=== PATIENT | female | born 1945 | race Caucasian/White ===

== ENCOUNTER 2021-01-31 09:53 | Inpatient (IN) | payer OTHER ==
[~2021-01-31] VITALS: Ht 160 cm; Wt 61.8 kg
--- NOTE | ~2021-01-31 | P ---
[facility] [place] [address] PROCEDURE REPORT Name: BLANE HANNAH Room #: 217-P ADM IN M.R.#: [id number] Admission: 01/31/21 Attend Phys: Kartik Parks MD Discharge: Date of : 45 Report #: [id number] THIS REPORT FOR: cc: FAM - Family physician unknown FAM - Family physician unknown Andrew Aguiar MD ~ cc: René Seymour MD DATE OF SERVICE: 02/02/2021 PROCEDURE PERFORMED: Upper endoscopy with bleeding control. HISTORY OF PRESENT ILLNESS: The patient is a 75-year-old female who was admitted for chest pain. She was noted to have a mildly elevated troponin. She has a previous history of coronary artery disease with stent placement. Plan is for cardiac catheterization likely on Friday. She has an iron deficiency anemia. Admit hemoglobin was 7.1, dropped to 6.5 yesterday, was transfused 1 unit of packed cells and hemoglobin today is 8.0. Stool was Hemoccult positive x 1 yesterday. The patient denies any obvious bright red blood per rectum or melena, reportedly had a colonoscopy in the last 1-2 years that was negative. She denies any dysphagia. She is on aspirin at home as well as PPI therapy. DESCRIPTION OF PROCEDURE: The risks and benefits of the procedure were explained to the patient, those risks including but not limited to bleeding, perforation and the risk of sedation. She understood these risks and gave informed consent. Sedation was given using propofol per Anesthesia. Next, using a standard Olympus upper endoscope, the scope was placed in the patient's mouth and advanced under direct vision through the esophagus, stomach and into the second portion of the duodenum. The larynx was normal in appearance. The esophagus was normal throughout. The GE junction was normal. In the gastric body, a single nonbleeding AVM was noted, 3 mm in size. Because of her history of anemia, this was cauterized with a 7-English bipolar cautery. No evidence of bleeding after cauterization. Otherwise, normal gastric mucosa. The pylorus was normal and patent. The duodenal bulb and first portion were normal. In the second portion, 2 small nonbleeding AVMs also noted. Both of these were also cauterized. No other abnormalities noted. The scope was then withdrawn and the procedure terminated. The patient tolerated the procedure well. IMPRESSION: 1. Small gastric and duodenal arteriovenous malformations, nonbleeding, status post cauterization today, could be etiology of the patient's anemia, heme-positive stool. 2. Otherwise, normal upper endoscopy. RECOMMENDATIONS: 1. Observe the patient post-procedure. [address] [address] PROCEDURE REPORT Name: BLANE HANNAH Room #: 217-P [facility] IN M.R.#: [id number] Admission: 01/31/21 Attend Phys: Kartik Parks MD Discharge: Date of : 45 Report #: [id number] 2. Continue daily PPI therapy. 3. Okay to proceed with cardiac catheterization as long as hemoglobin remains stable. Thank you for allowing me to participate in her care. By: 1352 3536 Andrew Aguiar MD /nt
[2021-01-31 09:57] VITALS: BP 151/58
[2021-01-31] MEDS ORDERED: COZAAR 25 MG TA25 M1 PO (10:11)
[2021-01-31] MEDS ORDERED: NAMENDA 5 MG TAB5 M1 PO (10:12)
[2021-01-31] MEDS ORDERED: DICLOFENAC SOD100 G1 PO (10:12)
[2021-01-31] MEDS ORDERED: PROTONIX40 M4 PO (10:15)
[2021-01-31] MEDS ORDERED: ASA81BEC PO (10:15)
[2021-01-31] MEDS ORDERED: DESYREL150 MG PO (10:15)
[2021-01-31] MEDS ORDERED: STOOL SOFTENER100 MG PO (10:16)
[2021-01-31] MEDS ORDERED: NEURONTIN100 MG PO (10:16)
[2021-01-31] MEDS ORDERED: BACLOFEN 10MG T10 MG PO (10:17)
[2021-01-31] MEDS ORDERED: APAP W/CODEINE1 TA2 PO (10:18)
[2021-01-31 10:22] LABS: ABSOLUTE NEUTROPHILS 6.3 thou/uL (1.4-8.2); BASOPHILS 0.5 % (0.0-2.0); EOSINOPHILS 0.6 % (0.0-3.0); HEMATOCRIT 22.7 % (37.0-47.0); HEMOGLOBIN 7.1 gm/dL (12.0-15.0); LYMPHOCYTES 8.1 % (24.0-44.0); MCH 24.5 pg (26.0-34.0); MCHC 31.1 g/dL (28.0-37.0); MCV 78.9 fL (80.0-100.0); MONOCYTES 6.3 % (1.0-8.0); PLATELET COUNT 304 thou/uL (150-400); POLYS 84.5 % (36.0-66.0); RBC 2.88 mil/uL (4.20-5.00); RDW 17.8 % (10.5-14.5); WBC 7.5 thou/uL (4.0-11.0)
[2021-01-31 10:32] LABS: CALCIUM 8.3 mg/dL (8.5-10.1); CREATININE 0.8 mg/dL (0.6-1.0)
[2021-01-31 10:42] LABS: ALBUMIN 3.1 g/dL (3.4-5.0); TOTAL BILIRUBIN 0.2 mg/dL (0.2-1.0); TOTAL PROTEIN 6.6 g/dL (6.4-8.2); TROPONIN-I 0.34 ng/mL (<0.06)
--- NOTE | 2021-01-31 12:23 | EKG ---
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 : 1945 Requested By: Emmett Rivera Order Number: [id number] MD: Darius Tse Measurements Intervals Kinney Rate: 64 P: 54 NM: 233 QRS: -21 QRSD: 102 T: 24 QT: 515 QTc: 532 Interpretive Statements Sinus rhythm Prolonged NM interval Borderline left axis deviation Abnormal R-wave progression, early transition Nonspecific T abnrm, anterolateral leads Prolonged QT interval No previous ECG available for comparison Electronically Signed On 01-31-2021 12:23:13 CDT by Darius Tse [email or web address] <ELECTRONICALLY SIGNED> By: Darius Tse MD, [facility] 01/31/21 [phone] [id number] Darius Tse MD, [facility] /EPI
[2021-01-31 12:31] LABS: % SATURATION 3 % (20-39); IRON 11 ug/dL (50-170); TIBC 315 ug/dL (250-450)
[2021-01-31 12:50] VITALS: BP 139/64
[2021-01-31 12:58] LABS: FOLIC ACID 12.5 ng/mL (8.6-58.9)
--- NOTE | 2021-01-31 13:08 | NUR ---
DR ORTEGA AT BEDSIDE.
[2021-01-31] MEDS ORDERED: HYDROCODON-ACE1 EAC7 PO (15:33)
[2021-01-31] MEDS ORDERED: MELOXICAM7.5 MG PO (15:33)
[2021-01-31] MEDS ORDERED: KLOR-CON 1010 MEQ PO (15:34)
[2021-01-31 16:46] VITALS: BP 164/68
[2021-01-31 17:15] VITALS: BP 134/44
--- NOTE | 2021-01-31 17:45 | NUR ---
75 year old female presenting to the ED with her family with the complaint of CP. Pt states the CP suddenly onset at 0730 the AM of 01-31-21. Note Trop of 0.34. Possible cardiac cath and trend troponins. Spouse Leo listed as next of Kin at [phone] and daughter Leigh Ann Hansen at [phone]. Called Leo's number and daughter Leigh Ann answered as her father (the patients spouse) was driving. Explained role of CM and Leigh Ann stated that her Father Leo would be the one coming in and main contact. For now CM will await plans for discharge per MD and workup.
[2021-01-31 20:15] VITALS: BP 149/71
[2021-02-01 03:22] LABS: MONOCYTES 11.2 % (1.0-8.0); PLATELET COUNT 274 thou/uL (150-400)
[2021-02-01 03:24] LABS: ABSOLUTE NEUTROPHILS 2.5 thou/uL (1.4-8.2); BASOPHILS 1.2 % (0.0-2.0); EOSINOPHILS 3.9 % (0.0-3.0); HEMATOCRIT 20.1 % (37.0-47.0); HEMOGLOBIN 6.5 gm/dL (12.0-15.0); MCH 25.2 pg (26.0-34.0); MCHC 32.6 g/dL (28.0-37.0); MCV 77.2 fL (80.0-100.0); POLYS 53.7 % (36.0-66.0); RDW 17.7 % (10.5-14.5); WBC 4.6 thou/uL (4.0-11.0)
[2021-02-01 04:00] LABS: ANION GAP 11 mmol/L (7-16); BUN 15 mg/dL (7-18); CALCIUM 7.9 mg/dL (8.5-10.1); CHLORIDE 110 mmol/L (98-107); CHOLESTEROL 190 mg/dL (<200); CO2 24 mmol/L (21-32); CREATININE 0.7 mg/dL (0.6-1.0); GLUCOSE 87 mg/dL (74-106); HDL CHOLESTEROL 37 mg/dL (>40); LDL CHOLESTEROL 123 mg/dL (<100); MAGNESIUM 2.1 mg/dL (1.8-2.4); SODIUM 145 mmol/L (136-145); TC:HDL 5.1 Ratio (Not establshd); TRIGLYCERIDE 152 mg/dL (<150); VLDL 30 mg/dL (<40)
--- NOTE | 2021-02-01 04:29 | NUR ---
NPO SINCE MIDNIGHT FOR A POSSIBLE PROCEDURE TODAY.DENIES ANY PAIN.MONITOR SHOWS SA.POC CONTINUED.
[2021-02-01 04:45] VITALS: BP 167/76
[2021-02-01 05:02] LABS: SERUM ASSESSMENT Clear
--- NOTE | 2021-02-01 07:01 | NUR ---
LOW HEMOGLOBIN AND HEMATOCRIT THIS MORNING.LAB SAYS THEY WILL ONLY CALL FOR RESULT OF HGB 6.4 AND BELOW.JOSE PUBLISHING SPECIALIST WAS CALLED IMMEDIATELY AND SHE ORDERED 1 UNIT PRBC.CONSENT SIGNED.REPORT GIVEN TO DAY SHIFT RN.POC CONTINUED.
--- NOTE | 2021-02-01 09:12 | 2DMMODE ---
[facility] [place] [address] 2 D/M-MODE ECHOCARDIOGRAM Name: BLANE HANNAH Room #: 217-P ADM IN M.R.#: [id number] Admission: 01/31/21 Attend Phys: Kartik Parks MD Discharge: Date of : 45 Report #: [id number] THIS REPORT FOR: cc: FAM - Family physician unknown FAM - Family physician unknown Clifford Phillips MD ~ APPROVED REPORT Study performed: 02/01/2021 08:03:32 EXAM: Comprehensive 2D, Doppler, and color-flow Echocardiogram Patient Location: In-Patient Room #: 217 BSA: 1.64 HR: 65 bpm BP: 167/76 mmHg Rhythm: NSR Other Information Study Quality: Adequate Risk Factors: Cardiac Risk Factors: HTN, SOB, DM Indications Diabetes Dyspnea Chest Pain 2D Dimensions RVDd: 29.07 mm IVSd: 12.58 (7-11mm) LVOT Diam: 20.14 (18-24mm) LVDd: 49.11 mm PWd: 14.49 (7-11mm) Ascending Ao: 35.00 (22-36mm) LVDs: 35.72 (25-40mm) Left Atrium: 37.10 (27-40mm) Aortic Root: 32.94 mm Volumes Left Atrial Volume (Systole) Single Plane 4CH: 57.65 mL Single Plane 2CH: 49.25 mL Biplane LA Volume: 58.00 mL LA ESV Index: 35.00 mL/m2 [facility] [address] [place] [address] 2 D/M-MODE ECHOCARDIOGRAM Name: BLANE HANNAH Room #: 217-[facility] IN M.R.#: [id number] Admission: 01/31/21 Attend Phys: Kartik Parks MD Discharge: Date of : 45 Report #: [id number] Aortic Valve AoV Peak Elieser.: 2.62 m/s AO Peak Gr.: 27.51 mmHg LVOT Max P.28 mmHg AO Mean Gr.: 16.09 mmHg LVOT Mean P.25 mmHg AO V2 Mean: 1.92 m/s LVOT Max V: 1.03 m/s AO V2 VTI: 69.02 cm LVOT Mean V: 0.70 m/s MALGORZATA (VTI): 1.28 cm2 LVOT V1 VTI: 27.86 cm MALGORZATA Vmax: 1.26 cm2 AI Vmax: 4.54 m/s SV (LVOT): 88.67 mL AI [place]: 2.61 m/s2 AI PHT: 512.45 ms Mitral Valve E/A Ratio: 1.5 MV Decel. Time: 198.53 ms MV E Max Elieser.: 1.00 m/s MV A Elieser.: 0.67 m/s MV PHT: 57.57 ms MVA (PHT): 2.19 cm2 IVRT: 87.66 ms Pulmonary Valve PV Peak Elieser.: 1.46 m/s PV Peak Gr.: 8.49 mmHg Pulmonary Vein P Vein S: 0.68 m/s P Vein A: 0.19 m/s P Vein D: 0.45 m/s P Vein A Dur.: 124.6 msec P Vein S/D Ratio: 1.51 Tricuspid Valve TR Peak Elieser.: 2.67 m/s RAP Estimate: 7.00 mmHg TR Peak Gr.: 28.51 mmHg RVSP: 36.00 mmHg Left Ventricle The left ventricle is normal size. There is normal LV segmental wall motion. There is normal left ventricular wall thickness. Left ventricular systolic function is normal. The left ventricular ejection fraction is within the normal range. LVEF is 50-55%. Transmitral Doppler flow pattern suggests impaired LV relaxation. Right Ventricle The right ventricle is normal size. The right ventricular systolic function is normal. [facility] [address] [place] [address] 2 D/M-MODE ECHOCARDIOGRAM Name: BLANE HANNAH Room #: [address] [place] [address] IN M.R.#: [id number] Admission: 01/31/21 Attend Phys: Kartik Parks MD Discharge: Date of : 45 Report #: [id number] Left atrium is mildly dilated. The right atrium size is normal. Aortic Valve The aortic valve is normal in structure. Mild to moderate aortic regurgitation. Mild aortic stenosis. Highest mean aortic valve gradient is _16___mmHg. Peak aortic valve gradient is _27___mmHg. Calculated MALGORZATA by the continuity equation is 1.3_cm2. Mitral Valve The mitral valve is normal in structure. Moderate mitral regurgitation. No evidence of mitral valve stenosis. Tricuspid Valve The tricuspid valve is normal in structure. Mild tricuspid regurgitation. PAP 35 mmHg Pulmonic Valve The pulmonary valve is normal in structure. Trace pulmonic regurgitation. Great Vessels The aortic root is normal in size. IVC is normal in size and collapses >50% with inspiration. Pericardium There is no pericardial effusion. There is no pleural effusion. <Conclusion> The left ventricle is normal size. There is normal left ventricular wall thickness. LVEF is 50-55%. The right ventricle is normal size. Left atrium is mildly dilated. The aortic valve is normal in structure. Mild to moderate aortic regurgitation. Mild aortic stenosis. Highest mean aortic valve gradient is _16___mmHg. Peak aortic valve gradient is _27___mmHg. Calculated MALGORZATA by the continuity equation is 1.3_cm2. The mitral valve is normal in structure. Moderate mitral regurgitation. The tricuspid valve is normal in structure. Mild tricuspid regurgitation. PAP [address] [facility] [address] [place] [address] 2 D/M-MODE ECHOCARDIOGRAM Name: BLANE HANNAH Room #: 217-P ADM IN M.R.#: [id number] Admission: 01/31/21 Attend Phys: Kartik Parks MD Discharge: Date of : 45 Report #: [id number] The pulmonary valve is normal in structure. Trace pulmonic regurgitation. The aortic root is normal in size. There is no pericardial effusion. <ELECTRONICALLY SIGNED> By: Clifford Phillips MD 02/01/21911 1 1 Clifford Phillips MD /INF
[2021-02-01 16:00] VITALS: BP 169/67
[2021-02-01 19:39] VITALS: BP 180/67
[2021-02-02 03:35] LABS: HEMATOCRIT 24.6 % (37.0-47.0); MCH 25.6 pg (26.0-34.0); MCHC 32.5 g/dL (28.0-37.0); MCV 78.8 fL (80.0-100.0); RBC 3.12 mil/uL (4.20-5.00); RDW 17.7 % (10.5-14.5); WBC 4.5 thou/uL (4.0-11.0)
[2021-02-02 04:07] VITALS: BP 180/93
[2021-02-02 04:18] LABS: ALBUMIN 3.1 g/dL (3.4-5.0); CALCIUM 8.3 mg/dL (8.5-10.1); CREATININE 0.7 mg/dL (0.6-1.0); POTASSIUM 3.8 mmol/L (3.5-5.1); TOTAL BILIRUBIN 0.3 mg/dL (0.2-1.0); TOTAL PROTEIN 6.5 g/dL (6.4-8.2)
[2021-02-02 08:00] VITALS: BP 126/76
[2021-02-02 09:30] VITALS: BP 149/50
[2021-02-02 12:00] VITALS: BP 164/57
[2021-02-02 15:11] VITALS: BP 137/69
[2021-02-02 20:00] VITALS: BP 130/69; BP 142/69
--- NOTE | 2021-02-02 20:58 | NUR ---
1800- PT IS SCHEDULED FOR CARDIAC CATH ON MONDAY 02/05. PT'S WOULD LIKE NOTIFIED SOON PT'S SCHEDULED TIME FOR CATH IS MADE AVAILABLE. PT HAD EGD TODAY AND RN WAS TOLD IN REPORT FROM GI THAT PT HAD A FEW AVM'S FOUND THAT WERE COTERIZED BUT THAT NONE WERE BLEEDING AT THE TIME. PT ARRIVED BACK TO UNIT AND AMBULATED TO BATHROOM WITH STANDBY ASSIST. PT DENIES PAIN. PT HAS POOR APPETITE POST EGD.
[2021-02-03 03:09] VITALS: BP 138/68
--- NOTE | 2021-02-03 04:07 | NUR ---
ASSESSMENT: PT REMAIN ALERT AND ORIENT TIMES THREE WITH FORGETFULNESS. WHILE SLEEPING PT'S HR TO 40'S SUSTAINED WITH THE LOWEST BEING 28 NON-SUSTAINED. ONCE AWAKEN PT'S HR INCREASES IN THE 80-90 RANGE. PT WAKES UP A BIT CONFUSED TO PLACE AT TIMES. OTHERWISE, VSS WITH SR-1ST DEGREE, AND/OR SB. UP TO BR WITH SBA. PLAN IS TO GO TO [facility] PER DR. VELAZCO. SLOW PROGRESS TOWARDS DC GOALS, WILL CONTINUE TO MONITOR.
[2021-02-03 04:34] LABS: HEMATOCRIT 26.9 % (37.0-47.0); HEMOGLOBIN 8.9 gm/dL (12.0-15.0); MCH 26.1 pg (26.0-34.0); MCHC 33.1 g/dL (28.0-37.0); MCV 78.9 fL (80.0-100.0); RBC 3.41 mil/uL (4.20-5.00); RDW 18.5 % (10.5-14.5); WBC 5.3 thou/uL (4.0-11.0)
[2021-02-03 08:00] VITALS: BP 154/74
[2021-02-03 12:00] VITALS: BP 138/91
[2021-02-03 16:00] VITALS: BP 133/72
[2021-02-03 20:00] VITALS: BP 153/63
--- NOTE | 2021-02-04 04:40 | NUR ---
PT IS ALERT TO SELF AND PLACE BUT WITH CONFUSION. HISTORY OF DEMENTIA. LUNGS ARE CLEAR. ON ROOM AIR. UP TO BATHROOM WITH MINIMAL ASSSISTANCE PER NURSING. ABDOMEN IS FLAT BOWEL SOUNDS ACTIVE X4. DENIES ANY PAIN ISSUES. WILL CONTINUE TO MONTIOR AND ASSESS PER NURSINNG . CALL LIGHT WITHIN REACH IF NEEDS ASSSISTANCE
[2021-02-04 09:01] VITALS: BP 156/56
[2021-02-04 12:00] VITALS: BP 178/75
[2021-02-04 14:53] VITALS: BP 167/72
--- NOTE | 2021-02-04 17:39 | NUR ---
ASSUMED CARE AT 1300. PT AFEBRILE, ADEQUATE UOP, NO BM, APPROPRIATE APPETITE. PT TO HAVE CARDIAC CATH DONE ON MONDAY 02/05. PT HAS BEEN UPDATED AND EDUCATED ON PT CONDITION AND POC. PT PROGRESSING TOWARDS POC.
[2021-02-04 20:00] VITALS: BP 182/68
[2021-02-05 04:00] VITALS: BP 151/57; BP 187/89
[2021-02-05 08:00] VITALS: BP 167/81
[2021-02-05 08:18] LABS: HEMATOCRIT 27.9 % (37.0-47.0); HEMOGLOBIN 8.8 gm/dL (12.0-15.0); MCH 25.1 pg (26.0-34.0); MCHC 31.6 g/dL (28.0-37.0); MCV 79.5 fL (80.0-100.0); RBC 3.51 mil/uL (4.20-5.00); RDW 19.2 % (10.5-14.5); WBC 5.2 thou/uL (4.0-11.0)
[2021-02-05 08:24] LABS: CALCIUM 8.6 mg/dL (8.5-10.1); CREATININE 0.8 mg/dL (0.6-1.0); POTASSIUM 3.6 mmol/L (3.5-5.1)
[2021-02-05 12:55] VITALS: BP 156/65
--- NOTE | 2021-02-05 15:15 | EKG ---
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 : 1945 Requested By: Romeo Leung Order Number: [id number] MD: Darius Tse Measurements Intervals [place] Rate: 58 P: VT: QRS: -25 QRSD: 108 T: 3 QT: 442 QTc: 435 Interpretive Statements Atrial fibrillation Borderline left axis deviation Compared to ECG 01/31/2021 09:59:55 Sinus rhythm no longer present First degree AV block no longer present Prolonged QT interval no longer present Electronically Signed On 02-05-2021 15:14:54 CDT by Darius Tse [email or web address] <ELECTRONICALLY SIGNED> By: Darius Tse MD, [facility] 02/05/21 1514 1434 1434 Darius Tse MD, [facility] /EPI
[2021-02-05 16:00] VITALS: BP 162/79
--- NOTE | 2021-02-05 16:20 | CATHLAB ---
[facility] [address] [address] INVASIVE PROCEDURE REPORT Name: BLANE HANNAH Room #: 217-P ADM IN M.R.#: [id number] Admission: 01/31/21 Attend Phys: Kartik Parks MD Discharge: Date of : 45 Report #: [id number] THIS REPORT FOR: cc: FAM - Family physician unknown FAM - Family physician unknown Romeo Leung MD ~ APPROVED REPORT Study performed: 02/05/2021 12:00:26 Patient Details Patient Status: In-Patient Room #: 217 The patient is a 75 year-old female Event Personnel Romeo Leung Dish Network Installer, Alina Quick RN RN, Gabo Becker RTR Scrub, Zoë Grey RTR, AIRPORT UTILITY WORKER Monitor, Martin Siu RTR Scrub Procedures Performed Art Access - R radial artery Left Heart Cath w/or w/o Coronaries [id number] [facility] w/wo Plasty Single OM 371779 Hemostasis with Hemoband 24510 Initial Mod Sed Same Phys/QHP Gr5y 709046 32370 Mod Sed Same Phys/QHP Ea 221925 Indication Non-STEMI , Dyspnea, Chest pain Risk Factors HypercholesterolemiaPhysical Activity, Coronary Artery DiseaseHypertension Previous Procedures/Diagnoses Previous PCI, Previous [place] Procedure Narrative The right wrist was infiltrated with 1% Lidocaine subcutaneous anesthesia. A TRANSRADIAL SLENDER 6F GLIDESHEATH KIT #[id number] sheath was inserted into the Right Radial Artery^. Coronary angiography was performed using coronary diagnostic catheters. The right coronary system was accessed and visualized with a 5FR JR 4 #[id number] catheter. The left coronary system was accessed and visualized with a 5FR JL4 #[id number] catheter. The left ventricle was accessed and visualized with a 5FR JR 4 #[id number] catheter. Left ventricular/Aortic Valve gradient [facility] [place] [place] [address] [place] [address] INVASIVE PROCEDURE REPORT Name: BLANE HANNAH Room #: 217-P [facility] IN .R.#: [id number] Admission: 01/31/21 Attend Phys: Kartik Parks MD Discharge: Date of : 45 Report #: [id number] assessed via catheter pullback. Closure device was deployed with a Fr VASC BAND R 24CM #[id number]. The patient tolerated the procedure well and there were no complications associated with the procedure. There was no hematoma. Intraoperative Conscious Sedation Sedation start time: 12:38 Case end Time: 13:40 Fentanyl 100 mcg Versed 1 mg Fluoro Time: 12.30 minutes Dose: DAP 99640.30 cGycm2 1837 mGy Contrast Type and Amount: Omnipaque 170 ml Coronary Angiography The patient's coronary anatomy is right dominant. Diagnostic Cath Left Main Left main artery is a large-caliber vessel, with mild disease distally. LAD The LAD is a moderate-sized caliber vessel, traverses the anterior wall and terminates at the apex. There are stents in the proximal and mid segments, patent with mild restenosis. Just between the 2 stents, there is moderate stenosis, 40%. Circumflex The left circumflex artery has mild disease in the midsegment. The first and second obtuse marginal arteries both have early takeoff from the proximal left circumflex segment. OM1 There is a severe occlusion in the first obtuse marginal artery, 90%. OM2 This is a moderate-sized caliber vessel, patent with mild disease proximally. Right Coronary The RCA is a dominant vessel. There are stents in the midsegment with a total occlusion. The distal segment and its branches are adequately filled via collateral circulation from the left coronary artery. R PDA This is adequately filled from collateral circulation. RPLV This is adequately filled from collateral circulation. Left Ventriculography Left Ventriculography was not performed. Ejection Fraction was 50-55% based off patient's Echocardiogram. An LVEDP was measured and there is no gradient across the outflow tract. Hemodynamics The aortic pressure is 138/50 mmHg with a mean of 81 mmHg. The left [facility] [address] [place] [address] INVASIVE PROCEDURE REPORT Name: BLANE HANNAH Room #: 217-P ADM IN M.R.#: [id number] Admission: 01/31/21 Attend Phys: Kartik Parks MD Discharge: Date of : 45 Report #: [id number] ventricular pressure is 141/6 mmHg with a mean of mmHg. The left ventricular end diastolic pressure is 14 mmHg. PCI Technique Lesion Percutaneous coronary intervention was performed on the first obtuse marginal branch segment. The lesion stenosis prior to intervention was 95% with FABIO 3 flow. A VISTA 6FR XB 3.5 #[id number] Guide Catheter was used to engage the ostium. A Luge Wire .014 x 182CM #[id number] Interventional Guidewire was used to cross the lesion. BALLOON DILATION A Balloon catheter Euphora RX 2.0 x12 #[id number] was inserted and inflated up to 10.00atm for 9seconds. Additional Inflation: 14.00atm for 15seconds. Additional Inflation: 14.00atm for 5seconds. STENT DEPLOYMENT A drug-eluting stent RESOLUTE DORI RX 2.0 X 15 #[id number] was inserted and inflated up to 14.00atm for 28seconds. Final angiography reveals 0 % stenosis with FABIO 3 flow. Conclusion 1. Successful insertion of a drug-eluting stent into the first obtuse marginal artery. 2. There are patent stents in the LAD with mild restenosis. There is a moderate occlusion in the proximal segment. 3. The RCA is totally occluded. The distal segment and its branches are adequately filled via collateral circulation from the left coronary artery. 4. There is normal LV systolic function. 5. Recommend dual antiplatelet therapy and aggressive risk factor management. <ELECTRONICALLY SIGNED> By: Romeo Leung MD 02/05/21 1620 19 19 Romeo Leung MD /INF
[2021-02-05 20:00] VITALS: BP 163/58
[2021-02-06 04:00] VITALS: BP 161/73
[2021-02-06 04:00] LABS: HEMOGLOBIN 7.7 gm/dL (12.0-15.0); MCH 25.6 pg (26.0-34.0); MCHC 32.1 g/dL (28.0-37.0); MCV 79.7 fL (80.0-100.0); RBC 3.02 mil/uL (4.20-5.00); RDW 19.3 % (10.5-14.5); WBC 4.6 thou/uL (4.0-11.0)
[2021-02-06 04:34] LABS: ALBUMIN 3.1 g/dL (3.4-5.0); CREATININE 0.7 mg/dL (0.6-1.0); POTASSIUM 3.5 mmol/L (3.5-5.1); TOTAL BILIRUBIN 0.2 mg/dL (0.2-1.0); TOTAL PROTEIN 5.9 g/dL (6.4-8.2)
[2021-02-06 08:00] VITALS: BP 176/69
[2021-02-06] MEDS ORDERED: LIPITOR40 MG PO (08:22)
[2021-02-06] MEDS ORDERED: CLOPIDOGREL75 MG PO (08:22)
[2021-02-06] MEDS ORDERED: BENICAR40 MG PO (08:42)
--- NOTE | 2021-02-06 09:41 | NUR ---
met with patient who repots she lives in home with spouse. She has walker for community. All needs on one level. PCP Dr En Gaines in [place]. Patient does not drive sppuse drives. Discussed HH care and patient not interested in home health care she reports she has had in past and they are not very helpful. Casemgt following.
[2021-02-06 12:47] VITALS: BP 117/68
[2021-02-06] MEDS ORDERED: ACETAMINOPHEN325 M1 PO (12:57)
[2021-02-06] MEDS ORDERED: B-12500 MCG PO (12:57)
[2021-02-06] MEDS ORDERED: FOLIC ACID1 MG PO (12:57)
[2021-02-06 13:36] VITALS: BP 117/68
--- NOTE | 2021-02-06 14:13 | NUR ---
ASSESSMENT CHARTED - MEDS PER MISSAEL - FAVIOLA DIET AND FLUIDS. UP TO THE BATHROOM. NO CO'S OF PAIN OR NAUSEA. SEEN BY CARDIAC REHAB. PT HOME THIS AFTERNOON. INSTRUCTION RE HOME MEDS/ CARE AND FOLLOW UP GIVEN TO PT AND SPOUSE - STATED UNDERSTANDING OF INSTRUCTION GIVEN LEFT UNIT VIA WHEELCHAIR , HOME VIA PVT VEHICLE ACCOMAPNAIED BY NO CO'S AT TIME OF D/C.
--- NOTE | 2021-02-06 16:26 | NUR ---
spoke with spouse who was here to take patient home. Discussed home health care and spouse does not feel needed at this time. updated phys no further needs.
== END 2021-02-06 14:46 | disposition home or self-care (01) | DRG 246 ==
LOC: ER 09:53 → EROBS 11:59 → 2N 11:59 → EROBS 12:22 → 2N 16:47
PROVIDERS: Emergency Medicine; Internal Medicine Cardiovascular Disease; Nurse Practitioner; ADMIT Internal Medicine; ATTEND Internal Medicine
PROC: 0W3P8ZZ Control Bleeding in Gastrointestinal Tract, Via Natural or Artificial Opening Endoscopic (ICD-10-PCS; principal; 2021-02-01)
PROC: 30233N1 Transfusion of Nonautologous Red Blood Cells into Peripheral Vein, Percutaneous Approach (ICD-10-PCS; principal; 2021-02-01)
PROC: B2111ZZ Fluoroscopy of Multiple Coronary Arteries using Low Osmolar Contrast (ICD-10-PCS; 2021-02-05)
PROC: 027034Z Dilation of Coronary Artery, One Artery with Drug-eluting Intraluminal Device, Percutaneous Approach (ICD-10-PCS; 2021-02-05)
PROC: 4A023N7 Measurement of Cardiac Sampling and Pressure, Left Heart, Percutaneous Approach (ICD-10-PCS; 2021-02-05)
DX: I21.4 Non-ST elevation (NSTEMI) myocardial infarction (principal); K31.811 Angiodysplasia of stomach and duodenum with bleeding; T82.855A Stenosis of coronary artery stent, initial encounter; D62 Acute posthemorrhagic anemia; I25.10 Atherosclerotic heart disease of native coronary artery without angina pectoris; I10 Essential (primary) hypertension; Z66 Do not resuscitate; F03.90 Unspecified dementia, unspecified severity, without behavioral disturbance, psychotic disturbance, mood disturbance, and anxiety; Y83.8 Other surgical procedures as the cause of abnormal reaction of the patient, or of later complication, without mention of misadventure at the time of the procedure; E78.5 Hyperlipidemia, unspecified; M19.90 Unspecified osteoarthritis, unspecified site; K59.00 Constipation, unspecified; E53.8 Deficiency of other specified B group vitamins; N39.41 Urge incontinence; I08.0 Rheumatic disorders of both mitral and aortic valves; I71.4 Abdominal aortic aneurysm, without rupture; Z79.899 Other long term (current) drug therapy; Z20.822 Contact with and (suspected) exposure to COVID-19; Z88.1 Allergy status to other antibiotic agents; Z88.5 Allergy status to narcotic agent; Z88.8 Allergy status to other drugs, medicaments and biological substances; Z95.5 Presence of coronary angioplasty implant and graft; Z79.82 Long term (current) use of aspirin; Z87.891 Personal history of nicotine dependence; I25.2 Old myocardial infarction; Y92.89 Other specified places as the place of occurrence of the external cause
CPT/HCPCS: 10081; 62110; 62900; 70005

== ENCOUNTER → 2021-02-20 | Outpatient (CLI) | payer OTHER ==
[~2021-02-20] MED LIST: ACETAMINOPHEN325 M1 PO; APAP W/CODEINE1 TA2 PO; ASA81BEC PO; B-12500 MCG PO; BACLOFEN 10MG T10 MG PO; BENICAR40 MG PO; CLOPIDOGREL75 MG PO; COZAAR 25 MG TA25 M1 PO; DESYREL150 MG PO; DICLOFENAC SOD100 G1 PO; FOLIC ACID1 MG PO; HYDROCODON-ACE1 EAC7 PO; KLOR-CON 1010 MEQ PO; LIPITOR40 MG PO; MELOXICAM7.5 MG PO; NAMENDA 5 MG TAB5 M1 PO; NEURONTIN100 MG PO; PROTONIX40 M4 PO; STOOL SOFTENER100 MG PO
== END ==
LOC: SJCVC 13:02
PROVIDERS: ATTEND Internal Medicine Cardiovascular Disease
DX: R94.31 Abnormal electrocardiogram [ECG] [EKG] (principal); I49.9 Cardiac arrhythmia, unspecified; I44.0 Atrioventricular block, first degree; I25.10 Atherosclerotic heart disease of native coronary artery without angina pectoris; E78.00 Pure hypercholesterolemia, unspecified; I71.4 Abdominal aortic aneurysm, without rupture; D50.9 Iron deficiency anemia, unspecified; I35.0 Nonrheumatic aortic (valve) stenosis; I38 Endocarditis, valve unspecified; I10 Essential (primary) hypertension; F03.90 Unspecified dementia, unspecified severity, without behavioral disturbance, psychotic disturbance, mood disturbance, and anxiety; Z88.8 Allergy status to other drugs, medicaments and biological substances; Z79.82 Long term (current) use of aspirin; Z79.899 Other long term (current) drug therapy